=== PATIENT | male | born 1945 | race Caucasian/White ===

== ENCOUNTER 2017-05-26 12:18 | Emergency (ER) | payer OTHER | END 2017-05-26 17:15 | disposition short-term general hospital (02) | LOC: ER 12:18 | DX: R53.1 Weakness (principal); R53.81 Other malaise; S00.31XA Abrasion of nose, initial encounter; E11.9 Type 2 diabetes mellitus without complications; I10 Essential (primary) hypertension; F41.9 Anxiety disorder, unspecified; F17.210 Nicotine dependence, cigarettes, uncomplicated; Z79.82 Long term (current) use of aspirin; Z79.84 Long term (current) use of oral hypoglycemic drugs; Z79.899 Other long term (current) drug therapy; W19.XXXA Unspecified fall, initial encounter | CPT/HCPCS: 36415; 80307; 96360; 96361; G0480 ==